=== PATIENT | male | born 1970 | race African-American/Black ===

== ENCOUNTER 2020-03-10 20:28 | Emergency (ER) | payer OTHER ==
[~2020-03-10] VITALS: Ht 180.3 cm; Wt 118.0 kg
[2020-03-10 22:11] LABS: BASOPHILS % 0.1 % (0.0-2.0); EOSINOPHILS % 2.5 % (0.0-5.0); HEMATOCRIT. 44.2 % (42.0-52.0); LYMPHOCYTES % 9.9 % (20.0-50.0); MEAN CORPUSCULAR HEMOGLOBIN 29.5 pg (28.0-32.0); MEAN PLATELET VOLUME 10.2 fl (7.4-10.4); MONOCYTES % 6.5 % (2.0-8.0); PLATELET 271 x1000/uL (130-400); RED BLOOD CELL COUNT 5.08 mill/uL (4.7-6.1); RED CELL DISTRIBUTION WIDTH 15.5 % (11.6-14.6)
[2020-03-10 22:17] LABS: CHLORIDE 107 mEq/L (98-107)
[2020-03-10 22:19] LABS: PROTHROMBIN TIME 10.4 sec (9.6-11.0)
[2020-03-10 22:25] LABS: CLARITY URINE CLEAR (CLEAR); COLOR URINE YELLOW (YELLOW); KETONES URINE 2+ (NEGATIVE); LEUKOCYTE ESTERASE URINE NEGATIVE (NEGATIVE); NITRITE URINE NEGATIVE (NEGATIVE); OCCULT BLOOD URINE NEGATIVE (NEGATIVE); PROTEIN URINE NEGATIVE (NEGATIVE); SPECIFIC GRAVITY URINE 1.023 (1.005-1.030)
[2020-03-10] MEDS ORDERED: IOHEXOL-300 100 ML BOTTLE ONE (22:53)
[2020-03-11] MEDS ORDERED: SODIUM CHLORIDE 0.9% 1,000 ML IV ONE (00:15)
[2020-03-11] MEDS ORDERED: ONDANSETRON HCL 4MG/2ML INJ IV ONE (00:15)
[2020-03-11] MEDS ORDERED: PIPERACILLIN SODIUM/TAZOBACTAM 4.5 G in DEXT 5% WATER 100 ML IV SCH (00:15)
[2020-03-11] MEDS ORDERED: MORPHINE SULFATE 4 MG/ML CPJ (NOT FOR IM USE) IV ONE (00:15)
[2020-03-11] MEDS ORDERED: SODIUM CHLORIDE 0.45% 1,000 ML IV SCH (08:07)
[2020-03-11] MEDS ORDERED: ACETAMINOPHEN 325MG TABLET PO PRN (08:15)
[2020-03-11] MEDS ORDERED: DOCUSATE SODIUM 100MG CAPSULE PO PRN (08:15)
[2020-03-11] MEDS ORDERED: MORPHINE SULFATE 2 MG/ML CPJ (NOT FOR IM USE) IV PRN (08:15)
[2020-03-11] MEDS ORDERED: GUAIFENESIN 200MG/10ML SUGAR FREE UDC PO PRN (08:15)
[2020-03-11] MEDS ORDERED: ONDANSETRON HCL 4MG/2ML INJ IV PRN (08:15)
[2020-03-11] MEDS ORDERED: CLONIDINE 0.1MG TABLET PO PRN (08:15)
[2020-03-11] MEDS ORDERED: HYDROCODONE/ACETAMINOPHEN 10/325MG TABLET PO PRN (08:15)
[2020-03-11] MEDS ORDERED: LORAZEPAM 2MG/ML CPJ IV PRN (08:15)
[2020-03-11] MEDS ORDERED: MAGNESIUM/ALUMINUM HYDROXIDE/SIMETHICONE 30ML UDC PO PRN (08:15)
[2020-03-11] MEDS ORDERED: DIPHENHYDRAMINE 50MG/ML VIAL IV PRN (08:15)
[2020-03-11] MEDS ORDERED: IPRATROPIUM/ALBUTEROL 0.5-3(2.5)MG/3ML NEB HHN PRN (08:15)
[2020-03-11] MEDS ORDERED: LEVOFLOXACIN 500MG PREMIX 100 ML IV NR (08:30)
[2020-03-11] MEDS ORDERED: METRONIDAZOLE 500 MG PREMIX 100 ML IV NR (08:30)
[2020-03-11] MEDS ORDERED: ENOXAPARIN 30MG/0.3ML SYR SUBCUT SCH (09:00)
[2020-03-11] MEDS ORDERED: HYDRALAZINE 20MG/ML VIAL IV PRN (10:00)
[2020-03-11 12:43] VITALS: BP 188/142
[2020-03-11] MEDS ORDERED: SODIUM CHLORIDE 0.9% INJ 3ML FLUSH IVF SCH (14:00)
[2020-03-11] MEDS ORDERED: METRONIDAZOLE 500 MG PREMIX 100 ML IV SCH (15:00)
[2020-03-12] MEDS ORDERED: LEVOFLOXACIN 500MG PREMIX 100 ML IV SCH (08:15)
== END 2020-03-11 12:50 | disposition left against medical advice (07) ==
LOC: ER 20:28 → EDBD 20:28 → ER 03-11 12:50 → CANBEDREQ 03-11 18:00
DX: K57.30 Diverticulosis of large intestine without perforation or abscess without bleeding (principal); R65.10 Systemic inflammatory response syndrome (SIRS) of non-infectious origin without acute organ dysfunction; Q61.01 Congenital single renal cyst; E87.6 Hypokalemia; I10 Essential (primary) hypertension; F12.10 Cannabis abuse, uncomplicated; F17.210 Nicotine dependence, cigarettes, uncomplicated; F10.10 Alcohol abuse, uncomplicated; Y90.9 Presence of alcohol in blood, level not specified
CPT/HCPCS: 36415; 74177; 80053; 81003; 82378; 83690; 85025; 85610; 96361; 96365; 96366; 96368; 96372; 96375; 99285; J1650; J1956; J2270; J2405; J2543; J3490; J7030; J7060; Q9967

== ENCOUNTER 2020-11-06 05:07 | Inpatient (IN) | payer MEDICAID, OTHER ==
[~2020-11-06] VITALS: Ht 180.3 cm; Wt 122.0 kg
[~2020-11-06 05:07] MED LIST: AMLO10TA80 PO; LEVO500T2 MT; LOSA100T32 MT; METR500T MT
[2020-11-06] MEDS ORDERED: MORPHINE SULFATE 4 MG/ML CPJ (NOT FOR IM USE) IV STA (05:51)
[2020-11-06] MEDS ORDERED: ONDANSETRON HCL 4MG/2ML INJ IV STA (05:51)
[2020-11-06 05:56] LABS: BASOPHILS % 0.4 % (0.0-2.0); EOSINOPHILS % 3.5 % (0.0-5.0); HEMATOCRIT. 46.9 % (42.0-52.0); HEMOGLOBIN. 15.7 g/dL (14.0-18.0); LYMPHOCYTES % 9.5 % (20.0-50.0); MEAN CORPUSCULAR HEMOGLOBIN 28.9 pg (28.0-32.0); MEAN CORPUSCULAR VOLUME 86.6 fL (80.0-94.0); MEAN PLATELET VOLUME 9.7 fl (7.4-10.4); MONOCYTES % 6.6 % (2.0-8.0); PLATELET 234 x1000/uL (130-400); RED BLOOD CELL COUNT 5.41 mill/uL (4.7-6.1); RED CELL DISTRIBUTION WIDTH 15.5 % (11.6-14.6)
[2020-11-06] MEDS ORDERED: SODIUM CHLORIDE 0.9% 1,000 ML IV ONE (06:00)
[2020-11-06 06:50] LABS: CHLORIDE 109 mEq/L (98-107)
[2020-11-06] MEDS ORDERED: IOHEXOL-300 100 ML BOTTLE ONE (07:30)
[2020-11-06] MEDS ORDERED: LEVOFLOXACIN 750MG PREMIX 150 ML IV ONE (07:45)
[2020-11-06] MEDS ORDERED: METRONIDAZOLE 500 MG PREMIX 100 ML IV ONE (07:45)
[2020-11-06] MEDS ORDERED: MORPHINE SULFATE 4 MG/ML CPJ (NOT FOR IM USE) IV ONE (07:45)
[2020-11-06 10:10] LABS: CLARITY URINE CLEAR (CLEAR); COLOR URINE YELLOW (YELLOW); KETONES URINE 1+ (NEGATIVE); LEUKOCYTE ESTERASE URINE NEGATIVE (NEGATIVE); NITRITE URINE NEGATIVE (NEGATIVE); OCCULT BLOOD URINE NEGATIVE (NEGATIVE); PH URINE 7.5 (4.5-8.0); PROTEIN URINE NEGATIVE (NEGATIVE); SPECIFIC GRAVITY URINE 1.043 (1.005-1.030)
[2020-11-06] MEDS ORDERED: CLONIDINE 0.1MG TABLET PO PRN (11:30)
[2020-11-06 11:53] VITALS: BP 174/101
== END 2020-11-06 13:09 | disposition left against medical advice (07) | DRG 244 ==
LOC: ER 05:07 → EDBEDREQ 09:27 → EDBEDREQTM 09:27 → EDBEDREQSVC 09:27 → ENRESERV 09:43 → 6WST 10:37
PROVIDERS: ADMIT Internal Medicine; ATTEND Internal Medicine
DX: K57.92 Diverticulitis of intestine, part unspecified, without perforation or abscess without bleeding (principal); I10 Essential (primary) hypertension; I16.1 Hypertensive emergency; E87.6 Hypokalemia; Z53.29 Procedure and treatment not carried out because of patient's decision for other reasons; E44.1 Mild protein-calorie malnutrition; Z79.2 Long term (current) use of antibiotics; Z79.899 Other long term (current) drug therapy; Z68.37 Body mass index [BMI] 37.0-37.9, adult; E87.8 Other disorders of electrolyte and fluid balance, not elsewhere classified
CPT/HCPCS: 36415; 74177; 80053; 81003; 83605; 85025; 93005; 99285; J1956; J2270; J2405; J3490; J7030; Q9967

== ENCOUNTER 2022-02-28 06:54 | Emergency (ER) | payer MEDICAID ==
[~2022-02-28] VITALS: Ht 182.9 cm; Wt 109.0 kg
[2022-02-28] MEDS ORDERED: MORPHINE SULFATE 4 MG/ML CPJ (NOT FOR IM USE) IV STA (08:08)
[2022-02-28 09:46] LABS: HEMATOCRIT. 48.5 % (42.0-52.0); HEMOGLOBIN. 16.1 g/dL (14.0-18.0); MEAN CORPUSCULAR VOLUME 87.6 fL (80.0-94.0); MEAN PLATELET VOLUME 10.1 fl (7.4-10.4); PLATELET 222 x1000/uL (130-400); RED BLOOD CELL COUNT 5.54 mill/uL (4.7-6.1); RED CELL DISTRIBUTION WIDTH 14.9 % (11.6-14.6)
[2022-02-28 09:48] LABS: CHLORIDE 109 mEq/L (98-107)
[2022-02-28 10:24] LABS: PLATELET ESTIMATE NORMAL
[2022-02-28] MEDS ORDERED: METH-653 MT (12:36)
[2022-02-28] MEDS ORDERED: ACET-2708 MT (12:37)
[2022-02-28 12:40] LABS: PROTHROMBIN TIME 10.3 sec (9.6-11.0)
[2022-02-28] MEDS ORDERED: IOHEXOL-300 100 ML BOTTLE ONE (12:52)
[2022-02-28 14:15] VITALS: BP 150/75
== END 2022-02-28 14:32 | disposition home or self-care (01) ==
LOC: ER 07:30
DX: M54.2 Cervicalgia (principal); M25.512 Pain in left shoulder; R10.84 Generalized abdominal pain; I10 Essential (primary) hypertension; F12.10 Cannabis abuse, uncomplicated; Z87.19 Personal history of other diseases of the digestive system; Z93.3 Colostomy status; V47.5XXA Car driver injured in collision with fixed or stationary object in traffic accident, initial encounter; Y93.89 Activity, other specified; Y92.488 Other paved roadways as the place of occurrence of the external cause
CPT/HCPCS: 36415; 71045; 71260; 72125; 73030; 74177; 80053; 85025; 85610; 96374; 99285; J2270; Q9967